=== PATIENT | male | born 1995 | race Caucasian/White ===

== ENCOUNTER 2018-03-27 01:17 | Emergency (ER) | payer MEDICAID, OTHER ==
[~2018-03-27] VITALS: Ht 162.6 cm; Wt 72.6 kg
[2018-03-27 01:32] VITALS: BP 144/86
[2018-03-27] MEDS ORDERED: BACLOFEN 10 MG TAB PO ONE (03:45)
[2018-03-27] MEDS ORDERED: methylPREDNISolone SOD SUCC 125 MG/2 ML VL IM ONE (03:45)
== END 2018-03-27 04:26 | disposition home or self-care (01) ==
LOC: ER 01:20
DX: S33.5XXA Sprain of ligaments of lumbar spine, initial encounter (principal); W22.8XXA Striking against or struck by other objects, initial encounter; Y93.89 Activity, other specified; Y92.69 Other specified industrial and construction area as the place of occurrence of the external cause; Y99.8 Other external cause status
CPT/HCPCS: 72100; 96372; 99283; J2930